=== PATIENT | female | born 1950 | race Caucasian/White ===

== ENCOUNTER 2017-05-01 19:31 | Emergency (ER) | payer OTHER, MEDICARE, BC ==
[2017-05-01 19:44] VITALS: RESP 18
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
[2017-05-01 20:35] VITALS: BP 126/87; PULSE 98; TEMP 98.2
== END 2017-05-01 20:35 | disposition home or self-care (01) ==
LOC: EC 19:31
DX: S16.1XXA Strain of muscle, fascia and tendon at neck level, initial encounter (principal); R00.0 Tachycardia, unspecified; F32.9 Major depressive disorder, single episode, unspecified; Z79.899 Other long term (current) drug therapy; Z88.2 Allergy status to sulfonamides; V87.8XXA Person injured in other specified noncollision transport accidents involving motor vehicle (traffic), initial encounter; Y92.410 Unspecified street and highway as the place of occurrence of the external cause
CPT/HCPCS: 93005; 99284